=== PATIENT | male | born 1990 | race Caucasian/White ===

== ENCOUNTER 2017-11-05 20:45 | Emergency (ER) | payer BC, OTHER ==
[2017-11-05 21:07] VITALS: PULSE 120; TEMP 99.9
--- NOTE | 2017-11-05 21:25 | ED ---
General Adult HPI - General Chief complaint: Extremity Injury, Lower Stated complaint: Left Foot Pain Time Seen by Provider: 11/05/17 21:00 Source: patient, RN notes reviewed Mode of arrival: wheelchair Limitations: no limitations - History of Present Illness Initial comments: This a 27-year-old male who comes to the emergency Department complaining of left foot pain. Patient states he twisted his foot while working on his boat. Patient states the lateral aspect at the base of the fifth metatarsal is tender. Patient did not notice any swelling. Patient denies any other foot pain patient denies any ankle pain patient denies any other injury at this time. - Related Data Allergies Allergy/AdvReac Type Severity Reaction Status Date / Time No Known Allergies Allergy Verified 11/05/17 21:07 Review of Systems ROS Statement: Those systems with pertinent positive or pertinent negative responses have been documented in the HPI. ROS Other: All systems not noted in ROS Statement are negative. Past Medical History Past Medical History: No Reported History History of Any Multi-Drug Resistant Organisms: None Reported Past Surgical History: Orthopedic Surgery Additional Past Surgical History / Comment(s): rt knee Past Psychological History: No Psychological Hx Reported Smoking Status: Current every day smoker Past Alcohol Use History: Rare Past Drug Use History: None Reported General Exam - General Exam Comments Initial Comments: GENERAL Patient is well-developed and well-nourished. Patient is in mild distress. EYES Patient's pupils are equal and round. Extraocular motion is intact SKIN Unremarkable NEURO The patient is alert and oriented 3 PYSCH Patient has normal interpersonal interactions. MUSCULOSKELETAL Left foot tenderness base of the fifth metatarsal Limitations: no limitations Course Vital Signs 11/05/17 21:03 Temperature 99.9 F H Pulse Rate 120 H Respiratory 20 Rate Blood Pressure 128/62 O2 Sat by Pulse 96 Oximetry Procedures - Orthopedic Splinting/Casting Injury #1 Side: left Lower Extremity Injury Location: short leg Lower Extremity Immobilizer: posterior splint Medical Decision Making - Medical Decision Making X-ray showed proximal fifth metatarsal fracture on the left. I splinted the patient. Disposition Clinical Impression: Fracture of fifth metatarsal bone Disposition: HOME SELF-CARE Condition: Good Instructions: Foot Fracture in Adults (ED) Is patient prescribed a controlled substance at d/c from ED?: No Referrals: Murphy Cason MD [Primary Care Provider] - 1-2 days Gui Cameron DO [Doctor of Osteopathic Medicine] - 1-2 days Time of Disposition: 21:55
--- NOTE | 2017-11-05 21:50 | XR ---
EXAMINATION TYPE: XR foot complete LT DATE OF EXAM: 11/05/2017 COMPARISON: NONE HISTORY: Foot pain TECHNIQUE: 3 views FINDINGS: There is a nondisplaced transverse fracture across the base of the fifth metatarsal. There is no dislocation. Joint spaces are normal. IMPRESSION: Fifth metatarsal acute fracture.
[2017-11-05 22:02] VITALS: BP 130/73; RESP 18
== END 2017-11-05 22:10 | disposition home or self-care (01) ==
LOC: EC 20:45
DX: S92.352A Displaced fracture of fifth metatarsal bone, left foot, initial encounter for closed fracture (principal); F17.200 Nicotine dependence, unspecified, uncomplicated; X50.1XXA Overexertion from prolonged static or awkward postures, initial encounter; Y93.89 Activity, other specified; Y92.89 Other specified places as the place of occurrence of the external cause
CPT/HCPCS: 29515; 99283

== ENCOUNTER 2019-09-03 02:39 | Emergency (ER) | payer OTHER ==
[2019-09-03] MEDS ORDERED: CEPHALEXIN 500 MG CAP PO STA (02:53)
[2019-09-03] MEDS ORDERED: DIPH,PERTUS(ACELL)TETVAC-LF 0.5 ML VIAL IM ONE (02:53)
[2019-09-03] MEDS ORDERED: CEPHALEXIN 500MG STARTER PACK 4 CAP BTL PO STA (02:53)
[2019-09-03] MEDS ORDERED: TOPICAL SKIN ADHESIVE 1 EACH AMP TOPICAL ONE (02:54)
--- NOTE | 2019-09-03 02:55 | ED ---
Extremity Problem HPI - General Stated complaint: Rt hand lac Time Seen by Provider: 09/03/19 02:42 Source: RN notes reviewed, old records reviewed Limitations: no limitations - History of Present Illness Initial comments: This Is a 29-year-old male patient has right hand puncture wound puncture wound to the dorsal aspect of the finger. No significant bleeding no opening currently. Some swelling over the proximal digit. Again no cuttent bleeding. Patient has no ither injuries. MD Complaint: extremity pain (right hand swelling and puncture wound) -: minutes(s) Location: right History of Same: No Radiation: none Severity scale (1-10): 4 Quality: stabbing Improves with: nothing Worsens with: nothing Associated Symptoms: denies other symptoms - Related Data Previous Rx's Medication Instructions Recorded Cephalexin [Keflex] 500 mg PO Q8HR #15 cap 09/03/19 Allergies Allergy/AdvReac Type Severity Reaction Status Date / Time No Known Allergies Allergy Verified 11/05/17 21:07 Review of Systems ROS Statement: Those systems with pertinent positive or pertinent negative responses have been documented in the HPI. ROS Other: All systems not noted in ROS Statement are negative. Past Medical History Past Medical History: No Reported History History of Any Multi-Drug Resistant Organisms: None Reported Past Surgical History: Orthopedic Surgery Additional Past Surgical History / Comment(s): rt knee Past Psychological History: No Psychological Hx Reported Smoking Status: Current every day smoker Past Alcohol Use History: Rare Past Drug Use History: None Reported General Exam General appearance: alert, in no apparent distress Head exam: Present: atraumatic, normocephalic, normal inspection Eye exam: Present: normal appearance, PERRL, EOMI. Absent: scleral icterus, conjunctival injection, periorbital swelling ENT exam: Present: normal exam, mucous membranes moist Neck exam: Present: normal inspection. Absent: tenderness, meningismus, lymphadenopathy Respiratory exam: Present: normal lung sounds bilaterally. Absent: respiratory distress, wheezes, rales, rhonchi, stridor Cardiovascular Exam: Present: regular rate, normal rhythm, normal heart sounds. Absent: systolic murmur, diastolic murmur, rubs, gallop, clicks GI/Abdominal exam: Present: soft, normal bowel sounds. Absent: distended, tenderness, guarding, rebound, rigid Extremities exam: Present: normal inspection, full ROM, normal capillary refill, other (Right hadn injury, puncturs wound, no bleeding). Absent: tenderness, pedal edema, joint swelling, calf tenderness Back exam: Present: normal inspection Neurological exam: Present: alert, oriented X3, CN II-XII intact Psychiatric exam: Present: normal affect, normal mood Skin exam: Present: warm, dry, intact, normal color. Absent: rash Course Vital Signs 09/03/19 09/03/19 02:58 04:07 Temperature 98.6 F 98.3 F Pulse Rate 72 95 Respiratory 18 16 Rate Blood Pressure 137/104 142/96 O2 Sat by Pulse 98 98 Oximetry - Reevaluation(s) Reevaluation #1: medical record is reviewed patient wound is washes and demrabond across abrasion Medical Decision Making - Medical Decision Making 29 male puncture wound to right hand no significant bleeding, fixed with Dermabond, patient can be discharged - Radiology Data Radiology results: report reviewed (X-ray right hand is negative for acute disease), image reviewed Disposition Clinical Impression: Puncture wound of right hand Disposition: HOME SELF-CARE Condition: Good Instructions (If sedation given, give patient instructions): Puncture Wound (ED) Prescriptions: Cephalexin [Keflex] 500 mg PO Q8HR #15 cap Is patient prescribed a controlled substance at d/c from ED?: No Referrals: Murphy Cason MD [Primary Care Provider] - 1-2 days
--- NOTE | 2019-09-03 03:52 | XR ---
EXAMINATION TYPE: XR hand complete RT DATE OF EXAM: 09/03/2019 COMPARISON: 10/28/2014 HISTORY: Pain and swelling TECHNIQUE: 3 views FINDINGS: Metacarpals are intact. I see no fracture nor dislocation. There is no sign of radiopaque f oreign body. Joint spaces are normal. There are no erosions. IMPRESSION: No acute abnormality of the right hand. No change.
[2019-09-03 04:10] VITALS: BP 142/96; PULSE 95; RESP 16; TEMP 98.3
--- NOTE | 2019-09-19 07:05 | CDI ---
Dear Sandeep Briggs, DO Please provide rt hand puncture wound repair length. Thank you, Eduar Moser Business Analyst Manager If you have any questions, please contact Mail Truck Driver at [phone] wound was puncture wound . repaired with cleaning and dermabond 0.1cm MTDD
== END 2019-09-03 04:10 | disposition home or self-care (01) ==
LOC: EC 02:39
DX: S61.431A Puncture wound without foreign body of right hand, initial encounter (principal); F17.200 Nicotine dependence, unspecified, uncomplicated; Z23 Encounter for immunization; W45.8XXA Other foreign body or object entering through skin, initial encounter; Y92.69 Other specified industrial and construction area as the place of occurrence of the external cause; Y99.0 Civilian activity done for income or pay
CPT/HCPCS: 12001; 90471; 90715; 99283

== ENCOUNTER 2019-11-27 01:24 | Emergency (ER) | payer OTHER ==
[2019-11-27 01:32] VITALS: BP 153/107; PULSE 108; RESP 18; TEMP 98.6
--- NOTE | 2019-11-27 01:48 | ED ---
Upper Extremity HPI - General Chief Complaint: Extremity Injury, Upper Stated Complaint: Hand Injury Time Seen by Provider: 11/27/19 01:48 Source: patient Mode of arrival: ambulatory Limitations: no limitations - History of Present Illness Initial Comments: is a previously healthy 29-year-old male presents the ER today for evaluation of injury to his left hand. Patient reports he accidentally smashed his fingers with a cinder block. He noticed bleeding under his fingernails had some pain. He is concerned his finger would become swollen surgical his wedding band. He didn't give the ER for evaluation. - Related Data Previous Rx's Medication Instructions Recorded Cephalexin [Keflex] 500 mg PO Q8HR #15 cap 09/03/19 Cephalexin [Keflex] 500 mg PO Q6HR 3 Days #12 cap 11/27/19 HYDROcodone/APAP 5-325MG [[place] 1 tab PO Q6HR PRN 3 Days #12 tab 11/27/19 5-325] Allergies Allergy/AdvReac Type Severity Reaction Status Date / Time No Known Allergies Allergy Verified 11/27/19 01:32 Review of Systems ROS Statement: Those systems with pertinent positive or pertinent negative responses have been documented in the HPI. ROS Other: All systems not noted in ROS Statement are negative. Past Medical History Past Medical History: No Reported History History of Any Multi-Drug Resistant Organisms: None Reported Past Surgical History: Orthopedic Surgery Additional Past Surgical History / Comment(s): rt knee Past Psychological History: No Psychological Hx Reported Smoking Status: Light tobacco smoker Past Alcohol Use History: Rare Past Drug Use History: None Reported General Exam - General Exam Comments Initial Comments: Physical Exam GENERAL: Patient is well-developed and well-nourished. Patient is nontoxic and well-hydrated and is in no distress. HENT: Normocephalic, Atraumatic. EYES: PERRL, EOMI PULMONARY: Unlabored respirations. CARDIOVASCULAR: RRR Warm and well perfused extremities ABDOMEN: Non-distended SKIN: No rashes or bruising : Deferred NEUROLOGIC: Alert and oriented Normal speech Normal gait MUSCULOSKELETAL: Left hand with subungual hematoma on 3rd and 4th fingers, some bleeding from 4th finger Full ROM PSYCHIATRIC: No SI/HI Limitations: no limitations Course Vital Signs 11/27/19 01:29 Temperature 98.6 F Pulse Rate 108 H Respiratory 18 Rate Blood Pressure 153/107 O2 Sat by Pulse 99 Oximetry Medical Decision Making - Medical Decision Making Patient was seen and evaluated history is obtained from the patient X-rays were obtained confirmed tuft fractures A ring block was done on both fingers Finger nails were trephinated, blood is from under fingernails patient had some improvement in his discomfort She'll be discharged home on oral Keflex for open tuft fracture Disposition Clinical Impression: Open fracture of tuft of distal phalanx of finger Disposition: HOME SELF-CARE Condition: Stable Prescriptions: Cephalexin [Keflex] 500 mg PO Q6HR 3 Days #12 cap HYDROcodone/APAP 5-325MG [[place] 5-325] 1 tab PO Q6HR PRN 3 Days #12 tab PRN Reason: Severe Pain Is patient prescribed a controlled substance at d/c from ED?: No Referrals: Murphy Cason MD [Primary Care Provider] - 1-2 days
--- NOTE | 2019-11-27 02:01 | XR ---
EXAMINATION TYPE: XR hand complete LT DATE OF EXAM: 11/27/2019 COMPARISON: NONE HISTORY: Pain TECHNIQUE: 3 views FINDINGS: Metacarpals are intact. Joint spaces are normal. There is minimally displaced fracture of t he tuft of the distal phalanx of the middle finger and ring finger. There is no sign of a foreign bod y. Carpal bones are intact. IMPRESSION: Tuft fractures of the fingers as above.
--- NOTE | 2019-11-27 02:03 | XR ---
EXAMINATION TYPE: XR finger LT DATE OF EXAM: 11/27/2019 COMPARISON: NONE HISTORY: Crush injury. Pain. TECHNIQUE: 3 views FINDINGS: 3 views of the left third fourth and fifth digits were obtained. There are fractures of the tuft of the distal phalanx of the ring finger and also the middle finger. There is mild displacement . There is no evidence of a foreign body. Joint spaces are normal. IMPRESSION: Fractures of 2 fingers as above. There is more displacement of the fracture of the ring finger.
[2019-11-27] MEDS ORDERED: CEPHALEXIN 500MG STARTER PACK 4 CAP BTL PO STA (02:07)
[2019-11-27] MEDS ORDERED: LIDOCAINE 1% INJ 10MG/ML (20 ML MDV) SQ ONE (02:38)
[2019-11-27] MEDS ORDERED: HYDROcodone/APAP 5-325MG 1 EACH TAB PO STA (03:08)
== END 2019-11-27 03:32 | disposition home or self-care (01) ==
LOC: EC 01:24
DX: S62.633B Displaced fracture of distal phalanx of left middle finger, initial encounter for open fracture (principal); S62.635B Displaced fracture of distal phalanx of left ring finger, initial encounter for open fracture; F17.200 Nicotine dependence, unspecified, uncomplicated; W22.8XXA Striking against or struck by other objects, initial encounter
CPT/HCPCS: 11740; 99283

== ENCOUNTER 2019-11-29 19:36 | Emergency (ER) | payer OTHER ==
[2019-11-29 19:58] VITALS: RESP 16
--- NOTE | 2019-11-29 20:45 | ED ---
General Adult HPI - General Chief complaint: Extremity Injury, Upper Stated complaint: Recheck LT hand injury Time Seen by Provider: 11/29/19 20:13 Source: patient, RN notes reviewed, old records reviewed Mode of arrival: ambulatory Limitations: no limitations - History of Present Illness Initial comments: 29-year-old male patient presents ED for chief complaint of swelling to his middle digit distal aspect. Patient had a crush injury on 11/26. Minimally displaced tuft fractures middle digit and ring finger. Patient reports that he has a large hematoma underneath the nail Causing him pain. Denies any other areas of pain. Denies any other complaints. Systemic: Pt denies fatigue, fever/chills, rash. Pt denies weakness, night sweats, weight loss. Neuro: Pt denies headache, visual disturbances, syncope or pre-syncope. HEENT: Pt denies ocular discharge or irritation, otalgia, rhinorrhea, pharyngitis or notable lymphadenopathy. Cardiopulmonary: Pt denies chest pain, SOB, heart palpitations, dyspnea on exertion. Abdominal/GI: Pt denies abdominal pain, n/v/d. : Pt denies dysuria, burning w/ urination, frequency/urgency. Denies new onset urinary or bowel incontinence. Neuro: Pt denies new onset weakness, paresthesias. - Related Data Previous Rx's Medication Instructions Recorded Cephalexin [Keflex] 500 mg PO Q8HR #15 cap 09/03/19 Cephalexin [Keflex] 500 mg PO Q6HR 3 Days #12 cap 11/27/19 HYDROcodone/APAP 5-325MG [[place] 1 tab PO Q6HR PRN 3 Days #12 tab 11/27/19 5-325] Cephalexin [Keflex] 500 mg PO Q6HR 5 Days #20 cap 11/29/19 Allergies Allergy/AdvReac Type Severity Reaction Status Date / Time No Known Allergies Allergy Verified 11/29/19 19:58 Review of Systems ROS Statement: Those systems with pertinent positive or pertinent negative responses have been documented in the HPI. ROS Other: All systems not noted in ROS Statement are negative. Past Medical History Past Medical History: No Reported History History of Any Multi-Drug Resistant Organisms: None Reported Past Surgical History: Orthopedic Surgery Additional Past Surgical History / Comment(s): rt knee Past Psychological History: No Psychological Hx Reported Smoking Status: Light tobacco smoker Past Alcohol Use History: Rare Past Drug Use History: None Reported General Exam - General Exam Comments Initial Comments: Constitutional: NAD, AOX3, Pt has pleasant affect. HEENT: NC/AT, trachea midline, neck supple, no lymphadenopathy. External ears appear normal, without discharge. Mucous membranes moist. EOM intact. There is no scleral icterus. No pallor noted. Cardiopulmonary: RRR, no murmurs, rubs or gallops, no JVD noted. Lungs CTAB in anterior and posterior bae. No peripheral edema. Neuro: CN II-XII grossly intact. No nuchal rigidity. No raccon eyes, no merlos sign, no hemotympanum. No cervical spinal tenderness. MSK: Hematoma noted underneath nail of third digit on left hand. Area was cleaned, 18-gauge needle was used to drain hematoma in 2 spots. Pad Capillary refill less than 2 seconds. Full active ROM in upper and lower extremities, 5/5 stregnth. Limitations: no limitations Course Vital Signs 11/29/19 19:55 Temperature 98 F Pulse Rate 91 Respiratory 16 Rate Blood Pressure 141/97 O2 Sat by Pulse 99 Oximetry Medical Decision Making - Medical Decision Making 29-year-old male patient pretty for evaluation of painful hematoma underneath middle nail following a crush injury and a tuft fracture. Patient is currently on Keflex. Area was cleaned and the hematoma was drained in 2 locations in the nail. Patient's symptoms improved considerably. Patient will be discharged. Will follow up with orthopedic hand. Will continue to wear splint on third and fourth fingers. Anabiotic fully extended. Return to ER if condition worsens. Case discussed with Dr. Santamaria. Disposition Clinical Impression: Hematoma, Finger fracture Disposition: HOME SELF-CARE Condition: Stable Instructions (If sedation given, give patient instructions): Hematoma (ED) Additional Instructions: Continue to use splint on third and fourth digits. Take antibiotics as directed. Keep area clean and covered. Monitor for signs of infection. This in cludes redness drainage. Follow up with orthopedic consult tomorrow. Return to ER if condition worsens. Prescriptions: Cephalexin [Keflex] 500 mg PO Q6HR 5 Days #20 cap Is patient prescribed a controlled substance at d/c from ED?: No Referrals: Murphy Cason MD [Primary Care Provider] - 1-2 days Vj Pulliam PAC [PHYSICIAN CLINIC MANAGER] - 1-2 days
[2019-11-29 21:10] VITALS: BP 138/96; PULSE 86; TEMP 97.9
== END 2019-11-29 21:09 | disposition home or self-care (01) ==
LOC: EC 19:36
DX: S60.132D Contusion of left middle finger with damage to nail, subsequent encounter (principal); S62.603D Fracture of unspecified phalanx of left middle finger, subsequent encounter for fracture with routine healing; F17.200 Nicotine dependence, unspecified, uncomplicated; W23.0XXD Caught, crushed, jammed, or pinched between moving objects, subsequent encounter
CPT/HCPCS: 11740; 99283

== ENCOUNTER → 2022-06-16 | Outpatient (CLI) | payer OTHER ==
[2022-06-16 16:07] LABS: Basophils # (A) 0.08 X 10*3/uL (0.00-0.10); Basophils % (A) 1.3 %; Eosinophils # (A) 0.16 X 10*3/uL (0.04-0.35); Eosinophils % (A) 2.5 %; HCT 48.4 % (39.6-50.0); HGB 16.3 g/dL (13.0-17.0); Immature Grans, Automated 0.3 %; Lymphocytes # (A) 2.57 X 10*3/uL (0.90-5.00); Lymphocytes % (A) 40.3 %; MCH 30.5 pg (27.0-32.0); MCHC 33.7 g/dL (32.0-37.0); MCV 90.5 fL (80.0-97.0); Mean Platelet Volume 11.2 fL (9.5-12.2); Monocytes # (A) 0.54 X 10*3/uL (0.20-1.00); Monocytes % (A) 8.5 %; NRBC Per 100 WBC 0 /100 WBCS (0.0-0.0); Neutrophils # (A) 3.01 X 10*3/uL (1.80-7.70); Neutrophils % (A) 47.1 %; Platelet Count 229 X 10*3/uL (140-440); RBC 5.35 X 10*6/uL (4.40-5.60); RDW 13.3 % (11.5-14.5); WBC 6.38 X 10*3/uL (4.50-10.00)
[2022-06-16 18:00] LABS: ALT 69 U/L (10-49); AST 38 U/L (14-35); African American GFR (CKD) 114.9 (60.0-200.0); Albumin/Globulin Ratio 1.92 (1.60-3.17); Alkaline Phosphatase 95 U/L (41-126); Blood Urea Nitrogen 14.4 mg/dL (9.0-27.0); Calcium 9.6 mg/dL (8.7-10.3); Carbon Dioxide 24.6 mmol/L (20.0-27.5); Chloride 102 mmol/L (96-109); Chol/HDL Ratio 4.18 Ratio; Globulin 2.6 g/dL (1.6-3.3); Glucose 81 mg/dL (70-110); LDL Cholesterol,Calculated 84.7 mg/dL (0.0-131.0); Non-African American GFR(CKD) 99.1 (60.0-200.0); Potassium 4.7 mmol/L (3.5-5.5); Sodium 140 mmol/L (135-145); Total Protein 7.6 g/dL (6.2-8.2); VLDL Calculation 18.02 mg/dL (5.00-40.00)
== END | disposition home or self-care (01) ==
LOC: LABWHC1 07:53
PROVIDERS: ATTEND Family Medicine
DX: Z00.00 Encounter for general adult medical examination without abnormal findings (principal); E55.9 Vitamin D deficiency, unspecified
CPT/HCPCS: 36415; 80053; 80061; 82306; 85025

== ENCOUNTER → 2022-09-12 | Outpatient (CLI) | payer OTHER ==
[2022-09-12 15:53] LABS: Albumin 4.7 g/dL (3.8-4.9); Albumin/Globulin Ratio 1.82 (1.60-3.17); Anion Gap 10.6 mmol/L (10.00-18.00); BUN/Creat Ratio 14.62 Ratio (12.00-20.00); Blood Urea Nitrogen 14.4 mg/dL (9.0-27.0); Calcium 9.6 mg/dL (8.7-10.3); Carbon Dioxide 25.4 mmol/L (20.0-27.5); Globulin 2.6 g/dL (1.6-3.3); Potassium 4.5 mmol/L (3.5-5.5); Total Bilirubin 0.6 mg/dL (0.30-1.20); Total Protein 7.2 g/dL (6.2-8.2)
== END | disposition home or self-care (01) ==
LOC: LABWHC1 12:04
PROVIDERS: ATTEND Family Medicine
DX: I10 Essential (primary) hypertension (principal)
CPT/HCPCS: 36415; 80053

== ENCOUNTER 2023-11-17 23:00 | Emergency (ER) | payer OTHER ==
[2023-11-17 23:06] VITALS: RESP 18
[2023-11-17] MEDS: LORazepam 2 MG/ML INJ IV STA (23:37)
[2023-11-17] MEDS: SODIUM CHLORIDE 0.9% 1,000 ML IV STA (23:37)
--- NOTE | 2023-11-17 23:53 | XR ---
EXAMINATION TYPE: XR chest 2V DATE OF EXAM: 11/17/2023 COMPARISON: Chest x-ray April 26, 2013 HISTORY: Chest pain TECHNIQUE: Frontal and lateral views of the chest are obtained. FINDINGS: Poor inspiration on current study with patchy left greater than right bibasilar opacity fav oring atelectasis. There is no pleural effusion or pneumothorax seen. The cardiac silhouette size is upper limits of normal. The osseous structures are intact. IMPRESSION: Poor inspiration with left greater than right bibasilar opacity favoring atelectasis.
[2023-11-18 00:20] LABS: ALT 32 U/L (4-49); AST 28 U/L (17-59); African American GFR (CKD) >90 (>60 ml/min/1.73 sqM); Albumin 4.7 g/dL (3.5-5.0); Alkaline Phosphatase 99 U/L (38-126); Anion Gap 8 mmol/L; Blood Urea Nitrogen 14 mg/dL (9-20); Calcium 9.3 mg/dL (8.4-10.2); Carbon Dioxide 24 mmol/L (22-30); Chloride 107 mmol/L (98-107); Glucose 95 mg/dL (74-99); Lipase 123 U/L (23-300); Magnesium 1.9 mg/dL (1.6-2.3); Non-African American GFR(CKD) >90 (>60 ml/min/1.73 sqM); Potassium 3.9 mmol/L (3.5-5.1); Sodium 139 mmol/L (137-145); Total Bilirubin 0.6 mg/dL (0.2-1.3); Total Protein 7.4 g/dL (6.3-8.2)
[2023-11-18 00:41] LABS: Partial Thromboplastin Time 27.1 sec (22.0-30.0); Prothrombin Time 11.1 sec (10.0-12.5)
[2023-11-18 00:47] LABS: Basophils # (A) 0.1 k/uL (0-0.2); Basophils % (A) 1 %; Eosinophils # (A) 0.2 k/uL (0-0.7); Eosinophils % (A) 2 %; HCT 45.5 % (39.0-53.0); HGB 15.8 gm/dL (13.0-17.5); Lymphocytes # (A) 2.1 k/uL (1.0-4.8); Lymphocytes % (A) 30 %; MCH 30.3 pg (25.0-35.0); MCHC 34.7 g/dL (31.0-37.0); MCV 87.3 fL (80.0-100.0); Mean Platelet Volume 8.6; Monocytes # (A) 0.5 k/uL (0-1.0); Monocytes % (A) 7 %; Neutrophils % (A) 56 %; Platelet Count 218 k/uL (150-450); RBC 5.21 m/uL (4.30-5.90); RDW 13.4 % (11.5-15.5)
--- NOTE | 2023-11-18 01:27 | ED ---
Chest Pain HPI - General Chief Complaint: Chest Pain Stated Complaint: Chest Pain, Lft Arm pain Time Seen by Provider: 11/17/23 23:07 Source: patient Mode of arrival: ambulatory Limitations: no limitations - History of Present Illness Initial Comments: 33-year-old male presenting with chief complaint of chest pain. Patient states that he started having left-sided chest pain this evening. Pain radiates down the left arm and stops at the level of the elbow. Pain started when he was leaning on his truck with his left arm. States that he did drink 6 beers tonight. He has had similar symptoms in the past and was diagnosed with anxiety. Pain is worse with moving his arms. No lower extremity swelling. No recent surgery or long travel. No dizziness. No nausea or vomiting. No shortness of breath. He has had a mild dry cough. No fevers. - Related Data Previous Rx's Medication Instructions Recorded Cephalexin [Keflex] 500 mg PO Q6HR 3 Days #12 cap 11/27/19 HYDROcodone/APAP 5-325MG [[place] 1 tab PO Q6HR PRN 3 Days #12 tab 11/27/19 5-325] Cephalexin [Keflex] 500 mg PO Q6HR 5 Days #20 cap 11/29/19 Allergies Allergy/AdvReac Type Severity Reaction Status Date / Time No Known Allergies Allergy Verified 11/29/19 21:00 Review of Systems ROS Statement: Those systems with pertinent positive or pertinent negative responses have been documented in the HPI. ROS Other: All systems not noted in ROS Statement are negative. Past Medical History Past Medical History: No Reported History History of Any Multi-Drug Resistant Organisms: None Reported Past Surgical History: Orthopedic Surgery Additional Past Surgical History / Comment(s): rt knee Past Psychological History: No Psychological Hx Reported Past Alcohol Use History: Rare Past Drug Use History: None Reported General Exam Limitations: no limitations General appearance: alert, in no apparent distress Head exam: Present: atraumatic, normocephalic Eye exam: Present: normal appearance, EOMI Neck exam: Present: normal inspection. Absent: meningismus Respiratory exam: Present: normal lung sounds bilaterally. Absent: respiratory distress, wheezes, rales, rhonchi, stridor Cardiovascular Exam: Present: regular rate, normal rhythm, normal heart sounds. 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 sent in by a medical professional or institution ([facility], WIRE CHIEF, urgent care, hospital, or care home...) When possible be specific @ -No Did you speak to anyone other than the patient for history (EMS, parent, family, police, friend...)? What history was obtained from this source @ -No Did you review nursing and triage notes (agree or disagree)? Why? @ -I reviewed and agree with nursing and triage notes Were old charts reviewed (outside hosp., previous admission, EMS record, old EKG, old radiological studies, urgent care reports/EKG's, care home records)? Report findings @ -No old charts were reviewed Differential Diagnosis (chest pain, altered mental status, abdominal pain women, abdominal pain men, vaginal bleeding, weakness, fever, dyspnea, syncope, headache, dizziness, GI bleed, back pain, seizure, CVA, palpatations, mental health, musculoskeletal)? @ -MDM Differential Chest Pain: Stable Angina, Unstable Angina, STEMI, NSTEMI Aortic Dissection, Pneumothorax, Musculoskeletal, Esophageal Spasm GERD, Cholecystitis, Pancreatitis, Zos ter This is not meant to be an all-inclusive list. EKG interpreted by me (3pts min.). @ -EKG shows sinus rhythm ventricular rate 99. [place] interval 158. QRS 91. QT 340. QTc 397. X-rays interpreted by me (1pt min.). @ -Chest x-ray shows poor inspiration with left greater than right bibasilar opacities favoring atelectasis CT interpreted by me (1pt min.). @ -None done U/S interpreted by me (1pt. min.). @ -None done What testing was considered but not performed or refused? (CT, X-rays, U/S, labs)? Why? @ -None What meds were considered but not given or refused? Why? @ -None Did you discuss the management of the patient with other professionals (professionals i.e. , PA, WIRE CHIEF, lab, RT, psych nurse, geriatric social work professor, supervisor logging, teacher, real estate utilization officer, senior case manager)? Give summary @ -No Was smoking cessation discussed for >3mins.? @ -No Was critical care preformed (if so, how long)? @ -No Were there social determinants of health that impacted care today? How? (Homelessness, low income, unemployed, alcoholism, drug addiction, transportation, low edu. Level, literacy, decrease access to med. care, long term, rehab)? @ -No Was there de-escalation of care discussed even if they declined (Discuss DNR or withdrawal of care, Hospice)? DNR status @ -No What co-morbidities impacted this encounter? (DM, HTN, Smoking, COPD, CAD, Cancer, CVA, ARF, Chemo, Hep., AIDS, mental health diagnosis, sleep apnea, morbid obesity)? @ -None Was patient admitted / discharged? Hospital course, mention meds given and route, prescriptions, significant lab abnormalities, going to OR and other pert inent info. @ -33-year-old male presenting with chief complaint of chest pain that started this evening. Patient drinks 6 beers tonight. History and physical exam are conducted. Patient does appear somewhat anxious. He is given 1 mg Ativan. Lab work is grossly unremarkable including negative D-dimer and troponin. Chest x- ray shows atelectasis. On reassessment the patient is resting comfortably showing no acute signs of distress. He reports resolution of his symptoms. Heart score is 1. Discharged home. Follow-up with PCP. Report back to ER with any new or worsening symptoms. Discussed return parameters and answered all questions. Patient conveyed verbal understanding and agreed to the plan. I discussed this case in detail with my attending Dr. Berry Undiagnosed new problem with uncertain prognosis? @ -No Drug Therapy requiring intensive monitoring for toxicity (Heparin, Nitro, Insulin, Cardizem)? @ -No Were any procedures done? @ -No Diagnosis/symptom? @ -Atypical chest pain, anxiety Acute, or Chronic, or Acute on Chronic? @ -Acute Uncomplicated (without systemic symptoms) or Complicated (systemic symptoms)? @ -Uncomplicated Side effects of treatment? @ -No Exacerbation, Progression, or Severe Exacerbation? @ -No Poses a threat to life or bodily function? How? (Chest pain, [place], [place], pneumonia, PE, COPD, DKA, ARF, appy, cholecystitis, CVA, Diverticulitis, Homicidal, Suicidal, threat to staff... and all critical care pts) @ -Low likelihood Disposition Clinical Impression: Atypical chest pain Disposition: HOME SELF-CARE Condition: Fair Instructions (If sedation given, give patient instructions): Chest Pain (ED), Anxiety (ED) Additional Instructions: Follow-up with your PCP. Report back to ER with any new or worsening symptoms. Is patient prescribed a controlled substance at d/c from ED?: No Referrals: Murphy Cason MD [Primary Care Provider] - 1-2 days Time of Disposition: 01:27
[2023-11-18 01:42] VITALS: BP 104/52; PULSE 94; TEMP 98.3
== END 2023-11-18 01:42 | disposition home or self-care (01) ==
LOC: EC 23:00
DX: R07.89 Other chest pain (principal); F41.9 Anxiety disorder, unspecified
CPT/HCPCS: 99285; 96374; 96361; 36415; 93005; 85379; 80053; 83690; 83735; 84484; 85025; 85610; 85730; 71046; J2060

== ENCOUNTER → 2024-03-12 | Outpatient (CLI) | payer OTHER ==
[2024-03-12 13:51] VITALS: BP 120/84; PULSE 90; RESP 18; TEMP 98.1
--- NOTE | 2024-03-12 14:12 | P.CNPUL ---
History of Present Illness Consult date: 03/12/24 Chief complaint: Hypersomnia History of present illness: 34-year-old male patient, referred to me for sleep apnea evaluation. The patient currently works in the [employer]. He does midnight shifts. He feels exhausted on the job and the patient was taken to naps lasting around 30 minutes To 1 Hour Each does not drink excessive amount of caffeine or caffeinated beverages. No energy drinks. The patient gets home and goes to bed at around 7 AM. He wakes up at different times and sleeps on a routine 3 to 6 hours in the morning. He does not maintain the same schedule. He snores. He stops breathing during sleep and he has been told this by family members. His mother has obstructive sleep apnea. He is anxious and he grinds his teeth and occasionally has some increased anxiety and panic attack and recently he has been worked up by cardiology regarding his ongoing chest pains and workup has been negative. No recent weight gain. No substance abuse. Alcohol abuse. No smoking. The patient has mostly paralysis, no hallucinations, no cataplexy. No sleepwalking or sleep talking. His weight has remained stable over the years. No other major medical problems or comorbidities. Review of Systems Constitutional: Reports as per HPI Eyes: denies as per HPI, denies blurred vision, denies bulging eye, denies decreased vision, denies diplopia, denies discharge, denies dry eye, denies irritation, denies itching, denies pain, denies photophobia, denies loss of peripheral vision, denies loss of vision, denies tunnel vision/blind spots Ears: deny: decreased hearing, ear discharge, earache, tinnitus Breasts: absent: as per HPI, gynecomastia Cardiovascular: Reports as per HPI Respiratory: Reports snoring Gastrointestinal: Reports as per HPI Genitourinary: Reports as per HPI Musculoskeletal: Reports as per HPI Musculoskeletal: absent: ankle pain, ankle stiffness, ankle swelling, as per HPI, elbow pain, elbow stiffness, elbow swelling, foot pain, foot stiffness, foot swelling, hand pain, hand stiffness, hand swelling, hip pain, hip stiffness, hip swelling, knee pain, knee stiffness, knee swelling, shoulder pain, shoulder stiffness, shoulder swelling, wrist pain, wrist stiffness, wrist swelling Integumentary: Reports as per HPI Neurological: Reports as per HPI Psychiatric: Reports anxiety, Reports hypersomnia, Reports sleep disturbances Endocrine: Reports as per HPI Hematologic/Lymphatic: Reports as per HPI Allergic/Immunologic: Reports as per HPI Past Medical History Past Medical History: GERD/Reflux, Hypertension Additional Past Medical History / Comment(s): snoring History of Any Multi-Drug Resistant Organisms: None Reported Past Surgical History: Orthopedic Surgery Additional Past Surgical History / Comment(s): rt knee, nose cauterized, benign tuomor - r leg Past Psychological History: ADD/ADHD Additional Psychological History / Comment(s): Thought I was ADHD when I was younger, but grew out of it....I don't know."" Smoking Status: Vaper Past Alcohol Use History: Rare Past Drug Use History: None Reported - Past Family History Mother Family Medical History: Coronary Artery Disease (CAD), GERD/Reflux, Sleep Apnea/CPAP/BIPAP Additional Family Medical History / Comment(s): Snoring, OHS at age 52 - Triple Bypass. (DADS HX IS SNORING, ACID REFLUX) Medications and Allergies Home Medications Medication Instructions Recorded Confirmed Type Cephalexin [Keflex] 500 mg PO Q6HR 3 Days #12 cap 11/27/19 11/29/19 Rx HYDROcodone/APAP 5-325MG [[place] 1 tab PO Q6HR PRN 3 Days #12 tab 11/27/19 11/29/19 Rx 5-325] Cephalexin [Keflex] 500 mg PO Q6HR 5 Days #20 cap 11/29/19 Rx lisinopriL [Zestril] 10 mg PO DAILY 03/12/24 03/12/24 History Allergies Allergy/AdvReac Type Severity Reaction Status Date / Time No Known Allergies Allergy Verified 11/29/19 21:00 Physical Exam Vitals: Vital Signs Temp Pulse Resp BP Pulse Ox 03/12/24 13:49 98.1 F 90 18 120/84 97 Intake and Output 03/11/24 03/12/24 03/12/24 22:59 06:59 14:59 Other: Weight 102.739 kg The patient appeared well nourished and normally developed. Vital signs as documented. Head exam is unremarkable. No scleral icterus or corneal arcus noted. Neck is without jugular venous distension, thyromegaly, or carotid bruits. Carotid upstrokes are brisk bilaterally. The patient has a Mallampati class IV Lungs are clear to auscultation and percussion. Cardiac exam reveals the PMI to be normally sized and situated. Rhythm is regular. First and second heart sounds normal. No murmurs, rubs or gallops. Abdominal exam reveals normal bowel sounds, no masses, no organomegaly and no aortic enlargement. Extremities are nonedematous and both femoral and pedal pulses are normal. Examination of the skin revealed no evidence of significant rashes, suspicious appearing nevi or other concerning lesions. Neurologically, the patient is awake and alert and the patient does not have any focal neurological deficit. Cranial nerves are essentially intact. Assessment and Plan Plan: Chronic hypersomnia under investigation. The patient carries an [place] score of 14. Rule out obstructive sleep apnea based on his history of snoring and witnessed apneas. 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 Hypertension Anxiety Chest pain, nonspecific, probably rates anxiety Grinding Plan The patient was given the appropriate sleep hygiene measures. The patient was asked to regulate his sleep schedule. He needs to sleep at least 6 to 7 hours per 24 hours to avoid any insufficient sleep syndrome. The patient will undergo screening polysomnography and this will be daytime study Will evaluate this patient for obstructive sleep apnea and decide on treatment options accordingly. Encourage weight loss Comorbidities are essentially related to anxiety and hypertension. Will follow- up.
== END ==
LOC: 3 N SLEEP 13:16
PROVIDERS: ATTEND Internal Medicine Critical Care Medicine
CPT/HCPCS: 99211

== ENCOUNTER → 2024-04-04 | Outpatient (CLI) | payer OTHER ==
--- NOTE | 2024-04-09 23:35 | P.PCN ---
Date of Procedure: 04/04/24 Operative Findings: Polysomnography report Date of service 04/04/2024 History 34-year-old male patient, referred to me for sleep apnea evaluation. He does midnight shifts. He feels exhausted on the job and the patient was taken to naps lasting around 30 minutes, does not drink excessive amount of caffeine or caffeinated beverages. No energy drinks. The patient gets home and goes to bed at around 7 AM. He wakes up at different times and sleeps on a routine 3 to 6 hours in the morning. He does not maintain the same schedule. He snores. He stops breathing during sleep and he has been told this by family members. His mother has obstructive sleep apnea. He is anxious and he grinds his teeth and occasionally has some increased anxiety and panic attack and recently he has been worked up by cardiology regarding his ongoing chest pains and workup has been negative. No recent weight gain. No substance abuse. Alcohol abuse. No smoking. The patient has mostly paralysis, no hallucinations, no cataplexy. No sleepwalking or sleep talking. His weight has remained stable over the years. No other major medical problems or comorbidities. Pertinent physical findings Weight is 226 pounds with a body mass index of 34.8 Technical description The patient was studied using a standard complex polysomnography protocol that included recording of the Lead II EKG, Central, occipital and frontal EEG, right and left outer canthus EOG, submental EMG, right and left anterior tibialis EMG, respiratory airflow by thermocouple and or pressure/flow transducer, respiratory efforts by abdominal and thoracic PVDF belts, oxygen saturation by cable oximetry. Position by observation synchronized the PSG. Equipment used: [employer]. Sleep architecture The total recording duration was 440 minutes. The total sleep time was 290 minutes. The overall sleep efficiency was 70.0%. Latency to sleep onset was 18 minutes. The latency to REM sleep was 34.5 minutes. The sleep architecture was characterized by 13.1% stage I, 54.0% stage II, 30.1% stage III, 20.5% REM sleep. The total arousal index was 10.1. The wake after sleep onset time was 73 minutes. Respiratory analysis The sleep study showed a total of 76 obstructive events of which 10 were obstructive apneas, 4 were mixed apneas and 62 obstructive hypopneas. The resulting apnea-hypopnea index was 15.3. At the same time, the patient had 3 central apnea events with a central apnea index of 0.6. Noted the patient's disease was worse during REM sleep with an AHI of 33.3 during REM. Oxygenation analysis The baseline pulse ox while the patient on room air oxygen at rest was 96%. Lowest oxygen saturation was 87% throughout the sleep study. The patient spent the majority of his CPAP with a pulse ox of above 90% and there was no significant desaturation encountered. Sleep continuity There was a total of 49 arousals with an index of 10.1. Respiratory arousal index was 1.0 Periodic limb movement activity A total of 5 periodic limb movement activity with an index of 1.0. There was another 5 periodic limb movement activity associated with arousals with an index of 1.0 Cardiac summary Average heart rate was 77 with a minimum heart of 72 and a maximum heart of 83 Assessment Obstructive sleep apnea, mild in severity with an AHI of 15.3, worse during REM sleep as the patient carries an AHI of 33.3 during REM. No significant nocturnal oxygen desaturations. Chronic hypersomnia under investigation. The patient carries an [place] score of 14. 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 Hypertension Anxiety Chest pain, nonspecific, probably rates anxiety Grinding Plan The patient was given the appropriate sleep hygiene measures. The patient was asked to regulate his sleep schedule. He needs to sleep at least 6 to 7 hours per 24 hours to avoid any insufficient sleep syndrome. The sleep study showing only mild obstructive sleep apnea. If conservative m easures of regulating sleep schedule and extending sleep hours failed to improve the patient's symptoms, CPAP therapy needs to be considered and this will be discussed with the patient. Encourage weight loss Comorbidities are essentially related to anxiety and hypertension. Will follow- up.
== END ==
LOC: 3 N SLEEP 07:19
PROVIDERS: ATTEND Internal Medicine Critical Care Medicine
DX: G47.33 Obstructive sleep apnea (adult) (pediatric) (principal); G47.10 Hypersomnia, unspecified; G47.52 REM sleep behavior disorder; I10 Essential (primary) hypertension; F41.9 Anxiety disorder, unspecified; R07.9 Chest pain, unspecified; F17.200 Nicotine dependence, unspecified, uncomplicated; Z79.899 Other long term (current) drug therapy
CPT/HCPCS: 95810

== ENCOUNTER → 2024-05-06 | Outpatient (CLI) | payer OTHER ==
[2024-05-06 15:00] LABS: HCT 45.8 % (39.6-50.0); MCHC 34.9 g/dL (32.0-37.0); MCV 85.9 FL (80.0-97.0); Mean Platelet Volume 10.5 FL (9.5-12.2); NRBC Per 100 WBC 0 X 10*3/uL (0.00-0.01); Platelet Count 244 X 10*3/uL (140-440); RBC 5.33 X 10*6/uL (4.40-5.60); RDW 12.8 % (11.5-14.5); WBC 6.14 X 10*3/uL (4.50-10.00)
[2024-05-06 15:36] LABS: ALT 42 U/L (10-49); AST 28 U/L (14-35); Albumin 4.6 g/dL (3.8-4.9); Albumin/Globulin Ratio 1.64 Ratio (1.60-3.17); Alkaline Phosphatase 98 U/L (41-126); BUN/Creat Ratio 17.67 Ratio (12.00-20.00); Blood Urea Nitrogen 15.9 mg/dL (9.0-27.0); Calcium 9.3 mg/dL (8.7-10.3); Carbon Dioxide 24.2 mmol/L (21.6-31.8); Chloride 102 mmol/L (96-109); Chol/HDL Ratio 4.66 Ratio; Globulin 2.8 g/dL (1.6-3.3); Glucose 90 mg/dL (70-110); Potassium 4.3 mmol/L (3.5-5.5); Sodium 139 mmol/L (135-145); Total Bilirubin 0.6 mg/dL (0.3-1.2); Total Protein 7.4 g/dL (6.2-8.2)
== END | disposition home or self-care (01) ==
LOC: LABWHC1 10:23
PROVIDERS: ATTEND Family Medicine
DX: Z00.00 Encounter for general adult medical examination without abnormal findings (principal)
CPT/HCPCS: 36415; 80053; 80061; 82306; 85027

== ENCOUNTER → 2024-06-05 | Outpatient (CLI) | payer OTHER ==
--- NOTE | 2024-06-05 17:51 | XR ---
EXAMINATION TYPE: XR chest 2V DATE OF EXAM: 06/05/2024 5:21 PM COMPARISON: Chest radiographs from 11/17/2023 CLINICAL INDICATION: Male, 34 years old with history of R05.9 COUGH; [facility] TECHNIQUE: XR chest 2V Frontal and lateral views of the chest. FINDINGS: Lungs/Pleura: There is no evidence of pleural effusion, focal consolidation, or pneumothorax. Pulmonary vascularity: Unremarkable. Heart/mediastinum: Cardiomediastinal silhouette is unremarkable. Musculoskeletal: No acute osseous pathology. IMPRESSION: No acute cardiopulmonary disease/process. [facility], , 06/05/2024 5:48 PM
== END | disposition home or self-care (01) ==
LOC: RADXRMAIN 17:04
PROVIDERS: ATTEND Family Medicine
DX: R05.9 Cough, unspecified (principal)
CPT/HCPCS: 71046

== ENCOUNTER 2024-08-09 14:55 | Emergency (ER) | payer OTHER ==
--- NOTE | 2024-08-09 15:32 | ED ---
General Adult HPI - General Chief complaint: Shortness of Breath Stated complaint: NATALYA Time Seen by Provider: 08/09/24 15:21 Source: patient, EMS Mode of arrival: EMS Limitations: no limitations - History of Present Illness Initial comments: Dictation was produced using [employer] dictation software. please excuse any grammatical, word or spelling errors. Chief Complaint: 34-year-old male with throat pain History of Present Illness: Patient 34-year-old male states that he woke up from sleeping at 1:30 PM. States he works midnights. Woke up this morning around 1:30 PM with a sore throat. Denies feeling symptoms after eating last night. Denies any fever, chills or night sweats. No obvious sick contacts. States that hurts when he swallows. The ROS documented in this emergency department record has been reviewed and confirmed by me. Those systems with pertinent positive or negative responses have been documented in the HPI. All other systems are other negative and/or noncontributory. - Related Data Home Medications Medication Instructions Recorded Confirmed lisinopriL [Zestril] 10 mg PO DAILY 03/12/24 03/12/24 Previous Rx's Medication Instructions Recorded Cephalexin [Keflex] 500 mg PO Q6HR 3 Days #12 cap 11/27/19 HYDROcodone/APAP 5-325MG [[place] 1 tab PO Q6HR PRN 3 Days #12 tab 11/27/19 5-325] Cephalexin [Keflex] 500 mg PO Q6HR 5 Days #20 cap 11/29/19 Amoxic-Pot Clav 875-125Mg 1 tab PO Q12HR #20 tab 07/03/24 [Augmentin 875-125] methylPREDNISolone Dose Pack 4 mg PO DIRECTED #1 packet 08/09/24 [Medrol Dose Pack] Allergies Allergy/AdvReac Type Severity Reaction Status Date / Time No Known Allergies Allergy Verified 08/09/24 15:06 Review of Systems ROS Statement: Those systems with pertinent positive or pertinent negative responses have been documented in the HPI. ROS Other: All systems not noted in ROS Statement are negative. Past Medical History Past Medical History: GERD/Reflux, Hypertension Additional Past Medical History / Comment(s): snoring History of Any Multi-Drug Resistant Organisms: None Reported Past Surgical History: Orthopedic Surgery Additional Past Surgical History / Comment(s): rt knee, nose cauterized, benign tuomor - r leg Past Psychological History: ADD/ADHD Smoking Status: Vaper Past Alcohol Use History: Rare Past Drug Use History: None Reported - Past Family History Mother Family Medical History: Coronary Artery Disease (CAD), GERD/Reflux, Sleep Apnea/CPAP/BIPAP Additional Family Medical History / Comment(s): Snoring, OHS at age 52 - Triple Bypass. (DADS HX IS SNORING, ACID REFLUX) General Exam - General Exam Comments Initial Comments: General: Well-appearing, nontoxic, no acute distress. Head: Normocephalic, atraumatic Eyes: PERRLA, EOMI ENT: Airway patent, oropharyngeal erythema with swollen tonsils Chest: Nonlabored breathing Skin: No visual rash, normal skin tone Neuro: Alert and oriented 3 Musculoskeletal: No gross abnormalities Limitations: no limitations Course Vital Signs 08/09/24 15:03 Temperature 98.7 F Pulse Rate 88 Respiratory 20 Rate Blood Pressure 113/76 O2 Sat by Pulse 100 Oximetry Medical Decision Making - Medical Decision Making Was pt. sent in by a medical professional or institution (Dr. PA, PHOTOVOLTAIC TECHNICIAN, urgent care, hospital, or correction...) When possible be specific @ -No Did you speak to anyone other than the patient for history (EMS, parent, family, police, friend...)? What history was obtained from this source @ -No Did you review nursing and triage notes (agree or disagree)? Why? @ -I reviewed and agree with nursing and triage notes Were old charts reviewed (outside hosp., previous admission, EMS record, old EKG, old radiological studies, urgent care reports/EKG's, correction records)? Report findings @ -No old charts were reviewed Differential Diagnosis (chest pain, altered mental status, abdominal pain women, abdominal pain men, vaginal bleeding, musculoskeletal, weakness, fever, dyspnea, syncope, headache, dizziness, GI bleed, back pain, seizure, CVA, palpatations, mental health)? @ -Throat, viral pharyngitis, foreign body EKG interpreted by me (3pts min.). @ -None done X-rays interpreted by me (1pt min.). @ -None done CT interpreted by me (1pt min.). @ -None done U/S interpreted by me (1pt. min.). @ -None done What testing was considered but not performed or refused? (CT, X-rays, U/S, labs)? Why? @ -None What meds were considered but not given or refused? Why? @ -None Was smoking cessation discussed for >3mins.? @ -No Were there social determinants of health that impacted care today? How? (Homelessness, low income, unemployed, alcoholism, drug addiction, transportation, low edu. Level, literacy, decrease access to med. care, group home, rehab)? @ -No Was there de-escalation of care discussed even if they declined (Discuss DNR or withdrawal of care, Hospice)? DNR status @ -No What co-morbidities impacted this encounter? (DM, HTN, Smoking, COPD, CAD, Cancer, CVA, ARF, Chemo, Hep., AIDS, mental health diagnosis, sleep apnea, morbid obesity)? @ -None Was patient admitted / discharged? Hospital course, mention meds given and route, prescriptions, significant lab abnormalities, going to OR and other pertinent info. @ -34-year-old male clinical presentation consistent with pharyngitis. Vital signs upon arrival are within acceptable limits. Physical examination shows well-appearing male. No abnormal phonation. He does have erythema and swelling to his bilateral tonsils. Patient tolerating secretions. No respiratory distress viral swabs negative, strep test negative. Patient feeling better after Decadron shot. Patient given Medrol Dosepak and ENT follow-up. Did you discuss the management of the patient with other professionals (professionals i.e. , PA, PHOTOVOLTAIC TECHNICIAN, lab, RT, psych nurse, social media developer, bottoming room supervisor, teacher, corporate security officer, rifle case repairer)? Give summary @ -No Was critical care preformed (if so, how long)? @ -No Undiagnosed new problem with uncertain prognosis? @ -No Drug Therapy requiring intensive monitoring for toxicity (Heparin, Nitro, Insulin, Cardizem)? @ -No Were any procedures done? @ -No Diagnosis/symptom? Acute, or Chronic, or Acute on Chronic? Uncomplicated (without systemic symptoms) or Complicated (systemic symptoms)? @ -Pharyngitis Side effects of treatment? @ -No Exacerbation, Progression, or Severe Exacerbation? @ -No Poses a threat to life or bodily function? How? (Chest pain, [place], [place], pneumonia, PE, COPD, DKA, ARF, appy, cholecystitis, CVA, Diverticulitis, Homicidal, Suicidal, threat to staff... and all critical care pts) @ -No - Lab Data Lab Results 08/09/24 08/09/24 Range/Units 16:10 16:10 Influenza Type A (PCR) Not Detected (Not Detectd) Influenza Type B (PCR) Not Detected (Not Detectd) RSV (PCR) Not Detected (Not Detectd) SARS-CoV-2 (PCR) Not Detected (Not Detectd) Group A Strep (PCR) NOT DETECTED (Not Detectd) Disposition Clinical Impression: Pharyngitis Disposition: HOME SELF-CARE Instructions (If sedation given, give patient instructions): Pharyngitis (ED) Prescriptions: methylPREDNISolone Dose Pack [Medrol Dose Pack] 4 mg PO DIRECTED #1 packet Is patient prescribed a controlled substance at d/c from ED?: No Referrals: Josiah Carvalho MD [STAFF PHYSICIAN] - 1-2 days Time of Disposition: 17:03
[2024-08-09] MEDS: DEXAMETHASONE SOD PHOSPHATE 10 MG/ML 1 ML VIAL IVP STA (16:17)
[2024-08-09] MEDS: DEXAMETHASONE SOD PHOSPHATE 10 MG/ML 1 ML VIAL IM STA (16:17)
--- NOTE | 2024-08-09 16:49 | XR ---
EXAMINATION TYPE: XR chest 2V DATE OF EXAM: 08/09/2024 4:32 PM COMPARISON: Chest radiographs from 06/05/2024 TECHNIQUE: XR chest 2V Frontal and lateral views of the chest. CLINICAL INDICATION:Male, 34 years old with history of productive cough; FINDINGS: Lungs/Pleura: There is no evidence of pleural effusion, focal consolidation, or pneumothorax. Pulmonary vascularity: Unremarkable. Heart/mediastinum: Cardiomediastinal silhouette is unremarkable. Musculoskeletal: No acute osseous pathology. IMPRESSION: No acute cardiopulmonary disease/process. [facility], , 08/09/2024 4:47 PM
[2024-08-09 16:52] LABS: Influenza A Not Detected (Not Detectd); Influenza B Not Detected (Not Detectd); RSV Not Detected (Not Detectd)
[2024-08-09 17:24] VITALS: BP 101/68; PULSE 89; RESP 18; TEMP 98.9
== END 2024-08-09 17:24 | disposition home or self-care (01) ==
LOC: EC 14:55
DX: J02.9 Acute pharyngitis, unspecified (principal); F17.290 Nicotine dependence, other tobacco product, uncomplicated
CPT/HCPCS: 87651; 87636; 71046; 99285; 96374; J1100

== ENCOUNTER 2024-08-16 13:18 | Day surgery (SDC) | payer OTHER ==
[2024-08-14 16:03] VITALS: BMI 34.2
[~2024-08-16 13:18] MED LIST: LACTATED RINGERS 1,000 ML IV SCH
[2024-08-16] MEDS: IV FLUID CONTINUATION 1,000 ML IV ONE ×2 (13:50→14:41)
[2024-08-16 13:56] VITALS: TEMP 97.8
[2024-08-16] MEDS ORDERED: PROPOFOL 10 MG/ML 20 ML VIAL IV ONE (14:46)
--- NOTE | 2024-08-16 14:52 | P.PCN ---
Date of Procedure: 08/16/24 Procedure(s) Performed: BRIEF HISTORY: Patient is a 34-year-old, pleasant, white male scheduled for an upper endoscopy as a part of evaluation of chronic epigastric pain for the last 3 weeks duration. His omeprazole 20 mg daily despite which remain symptomatic.. PROCEDURE PERFORMED: Esophagogastroduodenoscopy with biopsy. PREOPERATIVE DIAGNOSIS: Chronic epigastric pain. IV sedation per anesthesia. PROCEDURE: After informed consent was obtained, the patient was brought into the endoscopy unit. IV sedation was administered by Anesthesia under continuous monitoring. Initially the Olympus GIF-140 video endoscope was inserted into the mouth. Esophagus intubated without any difficulty. It was gradually advanced into the stomach and duodenum and carefully examined. The bulb and the second part of the duodenum appeared normal. The scope at this time was withdrawn to the stomach, adequately insufflated with air, and upon careful examination, mucosa of the antrum had patchy areas of erythema consistent with gastritis and biopsies were done from this area. Small gastric polyps noted in the gastric body which were biopsied. Rest of the, body, cardia and the fundus appeared normal. The scope was then withdrawn into the esophagus. Small hiatal hernia noted. The GE junction was located at 39 cm from the incisors. There were linear erosions noted in the distal esophagus consistent with LA grade B reflux esophagitis. Rest of the esophagus appeared normal and the patient tolerated the procedure well. IMPRESSION: 1. Linear erosions in the distal esophagus consistent with LA grade B reflux esophagitis. 2. Small hiatal hernia 3. Mild antral gastritis 4. Small gastric polyps status post biopsy. RECOMMENDATIONS: The findings of this examination were discussed with the patient as well as his family.. He was advised to follow-up with the biopsy results. Recommend to increase omeprazole to 20 mg twice daily and follow antireflux measures. Follow-up in the office in 3 to 4 weeks.
[2024-08-16 15:43] VITALS: BP 124/82; PULSE 75; RESP 20
== END 2024-08-16 15:50 | disposition home or self-care (01) ==
LOC: ORWHC2ENDO 13:18
PROVIDERS: ATTEND Internal Medicine Gastroenterology
DX: K29.50 Unspecified chronic gastritis without bleeding (principal); K44.9 Diaphragmatic hernia without obstruction or gangrene; K31.7 Polyp of stomach and duodenum; K21.9 Gastro-esophageal reflux disease without esophagitis; G89.29 Other chronic pain; I10 Essential (primary) hypertension; F41.9 Anxiety disorder, unspecified; F90.9 Attention-deficit hyperactivity disorder, unspecified type; Z79.899 Other long term (current) drug therapy; Z98.890 Other specified postprocedural states
CPT/HCPCS: 88305; 43239; J2704

== ENCOUNTER → 2024-12-12 | Outpatient (CLI) | payer OTHER ==
[2024-12-13 02:18] LABS: HCT 46.1 % (39.6-50.0); HGB 15.5 g/dL (13.0-17.0); MCH 29.9 pg (27.0-32.0); MCHC 33.6 g/dL (32.0-37.0); MCV 89.0 FL (80.0-97.0); NRBC Per 100 WBC 0 X 10*3/uL (0.00-0.01); Platelet Count 244 X 10*3/uL (140-440); RBC 5.18 X 10*6/uL (4.40-5.60); RDW 13.3 % (11.5-14.5); WBC 6.24 X 10*3/uL (4.50-10.00)
[2024-12-13 02:19] LABS: Basophils # (A) 0.06 X 10*3/uL (0.00-0.10); Basophils % (A) 1.0 %; Eosinophils # (A) 0.11 X 10*3/uL (0.04-0.35); Eosinophils % (A) 1.8 %; Immature Grans, Automated 0.20 %; Lymphocytes # (A) 1.89 X 10*3/uL (0.90-5.00); Lymphocytes % (A) 30.3 %; Monocytes # (A) 0.67 X 10*3/uL (0.20-1.00); Monocytes % (A) 10.7 %; Neutrophils # (A) 3.50 X 10*3/uL (1.80-7.70); Neutrophils % (A) 56.0 %
[2024-12-13 03:39] LABS: ALT 61 U/L (10-49); AST 34 U/L (14-35); Albumin 4.5 g/dL (3.8-4.9); Albumin/Globulin Ratio 2.05 Ratio (1.60-3.17); Alkaline Phosphatase 90 U/L (41-126); Anion Gap 14.70 mmol/L (4.00-12.00); BUN/Creat Ratio 17.50 Ratio (12.00-20.00); Blood Urea Nitrogen 14.0 mg/dL (9.0-27.0); Calcium 8.9 mg/dL (8.7-10.3); Carbon Dioxide 20.3 mmol/L (21.6-31.8); Chloride 104 mmol/L (96-109); Globulin 2.2 g/dL (1.6-3.3); Glucose 84 mg/dL (70-110); Potassium 4.4 mmol/L (3.5-5.5); Sodium 139 mmol/L (135-145); Total Protein 6.7 g/dL (6.2-8.2)
== END | disposition home or self-care (01) ==
LOC: LABWHC1 15:27
PROVIDERS: ATTEND Family Medicine
DX: I10 Essential (primary) hypertension (principal)
CPT/HCPCS: 36415; 80053; 85025